=== PATIENT | male | born 1965 | race Two or more races ===

== ENCOUNTER → 2021-04-16 | Outpatient (CLI) | payer BC ==
[~2021-04-16] MED LIST: IOHEXOL 350 MG/ML 100ML IJ ONE
[2021-04-16 11:50] VITALS: BP 127/90
== END | disposition home or self-care (01) ==
LOC: Rad HDHVI 11:35 → EDSEX 11:35
PROVIDERS: ATTEND Internal Medicine Cardiovascular Disease
DX: I25.10 Atherosclerotic heart disease of native coronary artery without angina pectoris (principal); R06.02 Shortness of breath; R07.9 Chest pain, unspecified; K76.0 Fatty (change of) liver, not elsewhere classified; M47.814 Spondylosis without myelopathy or radiculopathy, thoracic region
CPT/HCPCS: 71275; G0463; Q9967

== ENCOUNTER 2023-11-09 08:10 | Emergency (ER) | payer BC ==
[~2023-11-09] VITALS: Ht 182.9 cm; Wt 88.6 kg
[2023-11-09 09:02] VITALS: BP 135/92; PULSE 102; RESP 18; TEMP 97.7; O2SAT 99
== END 2023-11-09 09:21 | disposition home or self-care (01) ==
LOC: ER 08:10
DX: R51.9 Headache, unspecified (principal); W18.39XA Other fall on same level, initial encounter; Y93.89 Activity, other specified; Y92.89 Other specified places as the place of occurrence of the external cause; Y99.8 Other external cause status
CPT/HCPCS: 70450

== ENCOUNTER → 2024-08-01 | Outpatient (CLI) | payer BC | END | disposition home or self-care (01) | LOC: Rad HDHVI 12:55 | PROVIDERS: ATTEND Internal Medicine Cardiovascular Disease | DX: I35.8 Other nonrheumatic aortic valve disorders (principal); I10 Essential (primary) hypertension | CPT/HCPCS: 93306 ==

== ENCOUNTER → 2024-08-02 | Outpatient (CLI) | payer BC ==
[~2024-08-02] MED LIST changes: +SODIUM CHLORIDE 0.9% 250 ML IV ONE
[2024-08-02 08:48] VITALS: BP 140/95; PULSE 74; RESP 16; O2SAT 98
[2024-08-02] MEDS: diphenhdrAMINE HCL 50 MG/1 ML VL IV ONE (09:15)
[2024-08-02] MEDS: methylPREDNISolone SOD SUCC 125 MG/2 ML VL IV ONE (09:17)
[2024-08-02] MEDS: diphenhdrAMINE HCL 50 MG/1 ML VL ONE (09:17)
[2024-08-02] MEDS: methylPREDNISolone SOD SUCC 125 MG/2 ML VL ONE (09:19)
[2024-08-02] MEDS: SODIUM CHLORIDE 0.9% 250 ML IV ONE (09:19)
[2024-08-02 10:20] VITALS: BP 130/89; PULSE 77; RESP 16; O2SAT 98
== END | disposition home or self-care (01) ==
LOC: Rad HDHVI 08:31
PROVIDERS: ATTEND Internal Medicine Cardiovascular Disease
DX: R22.2 Localized swelling, mass and lump, trunk (principal); I10 Essential (primary) hypertension; Z91.041 Radiographic dye allergy status
CPT/HCPCS: 72129; 96374; 96375; G0463; J1200; J2919; J7050; Q9967; 96360

== ENCOUNTER → 2024-09-25 | Outpatient (CLI) | payer BC ==
[~2024-09-25] VITALS: Ht 182.9 cm; Wt 88.5 kg
== END | disposition home or self-care (01) ==
LOC: Rad HDHVI 14:06
PROVIDERS: ATTEND Internal Medicine Cardiovascular Disease
DX: Z13.6 Encounter for screening for cardiovascular disorders (principal); I49.3 Ventricular premature depolarization; I49.1 Atrial premature depolarization; I10 Essential (primary) hypertension; I25.10 Atherosclerotic heart disease of native coronary artery without angina pectoris; R73.03 Prediabetes; R06.02 Shortness of breath; J44.9 Chronic obstructive pulmonary disease, unspecified; E78.00 Pure hypercholesterolemia, unspecified; F17.200 Nicotine dependence, unspecified, uncomplicated
CPT/HCPCS: 78452; 93017; 96374; A9500

== ENCOUNTER → 2024-10-14 | Outpatient (CLI) | payer BC ==
[~2024-10-14] MED LIST changes: +AMLO1TAB22 PO; +ATOR20TA50 PO; +CLOP75TA28 PO; -IOHEXOL 350 MG/ML 100ML IJ ONE; +LISI10TA34 PO; +PANT40T PO; -SODIUM CHLORIDE 0.9% 250 ML IV ONE; +TAMS-35 PO
[2024-10-14 12:03] VITALS: BP 117/80; PULSE 70; RESP 17; O2SAT 98
[2024-10-14 12:13] VITALS: BP 112/80; PULSE 77; RESP 18; O2SAT 98
--- NOTE | 2024-10-14 13:06 | DVH ---
CHEST RADIOGRAPH Indication: PRE OP Technique: Frontal and lateral view of the chest was obtained Comparison: None FINDINGS: Lines and Tubes: None Lungs: Clear Pleura: No effusion. No pneumothorax. Cardiomediastinal contours: Unremarkable Bones: Unremarkable IMPRESSION: 1. No evidence of acute disease.
== END | disposition home or self-care (01) ==
LOC: Rad HDHVI 11:55
PROVIDERS: ATTEND Internal Medicine Cardiovascular Disease
DX: Z01.818 Encounter for other preprocedural examination (principal); R00.1 Bradycardia, unspecified; I95.9 Hypotension, unspecified
CPT/HCPCS: 71046; 93005; G0463

== ENCOUNTER 2024-10-17 07:16 | Day surgery (SDC) | payer BC ==
[2024-10-14 14:01] LABS: Basophils # (auto) 0 10 ^3/uL (0-0.2); Basophils % (auto) 0.7 % (0.0-2.0); Eosinophils # (auto) 0.2 10 ^3/uL (0-0.8); Eosinophils % (auto) 2.9 % (0.0-7.0); Hematocrit 48.4 % (41.0-53.0); Hemoglobin 16.4 g/dL (13.5-17.5); Lymphocytes # (auto) 2.3 10 ^3/uL (0.4-5.4); Lymphocytes % (auto) 39.2 % (10.0-50.0); Mean Corpuscular Hemoglobin 30.3 pg (28.0-32.0); Mean Corpuscular Hgb Conc. 33.9 g/dL (32.0-36.0); Mean Corpuscular Volume 89.5 fL (80.0-100.0); Monocytes # (auto) 0.6 10 ^3/uL (0-1.3); Monocytes % (auto) 9.9 % (0.0-12.0); Neutrophils # (auto) 2.8 10 ^3/uL (1.6-8.6); Neutrophils % (auto) 47.3 % (37.0-80.0); Platelet Count (auto) 374 10^3/uL (140-450); Red Cell Distribution Width 13.1 % (11.8-14.3); White Blood Cell 5.8 10^3/uL (4.4-10.8)
[2024-10-14 14:21] LABS: INR 1.02 (0.9-1.15); Partial Thromboplastin Time 26.1 SEC (24.5-34.5); Prothrombin Time 10.8 sec (9.3-11.8)
[2024-10-14 14:39] LABS: Chloride 106 mmol/L (98-107); Potassium 4.1 mmol/L (3.5-5.1); Sodium 140 mmol/L (136-145)
[2024-10-14 14:40] LABS: Anion Gap 6 (5-15); Calcium 9.9 mg/dL (8.7-10.4); Carbon Dioxide 28 mmol/L (20-31)
[2024-10-14 14:45] LABS: Blood Urea Nitrogen 12 mg/dL (9-23)
[2024-10-14 14:49] LABS: Glucose 108 mg/dL (74-106)
[~2024-10-17] VITALS: Ht 182.9 cm; Wt 91.2 kg
[2024-10-17] VITALS (10 sets, daily range): BP systolic 99–127; BP diastolic 67–81; PULSE 64–79; RESP 13–23; TEMP 97.3; O2SAT 91–99
[2024-10-17] MEDS ORDERED: methylPREDNISolone SOD SUCC 125 MG/2 ML VL ONE (09:48)
[2024-10-17] MEDS ORDERED: diphenhdrAMINE HCL 50 MG/1 ML VL ONE (09:48)
[2024-10-17] MEDS ORDERED: VERAPAMIL 2.5MG/ML INJ 2ML VIAL IV ONE (09:49)
[2024-10-17] MEDS ORDERED: HEPARIN SODIUM (PORCINE) 5000 UNITS/ML 1ML VIAL ONE (09:50)
[2024-10-17] MEDS ORDERED: LIDOCAINE 2%HCL (LOCAL ANESTH.) INJ 10ml MDV ONE (09:51)
[2024-10-17] MEDS ORDERED: MIDAZOLAM HCL 2MG/2ML 2ml VIAL (1mg/ml) ONE (09:51)
[2024-10-17] MEDS ORDERED: fentaNYL CITRATE 100 MCG/2 ML VL ONE (09:51)
[2024-10-17] MEDS ORDERED: FAMOTIDINE (10MG/ML) 2ML VL IV ONE (09:52)
[2024-10-17] MEDS ORDERED: LIDOCAINE 2%HCL (LOCAL ANESTH.) INJ 20ML MDV ONE (09:58)
[2024-10-17] MEDS ORDERED: NITROGLYCERIN 50MG/250ML 250 ML IV ONE (09:58)
[2024-10-17] MEDS ORDERED: IOHEXOL 350 MG/ML 100ML IJ ONE (09:59)
[2024-10-17] MEDS ORDERED: SODIUM CHL 0.9% 0 ML ONE (10:23)
[2024-10-17] MEDS ORDERED: ANGIOMAX 250 MG VIAL IV ONE (10:23)
--- NOTE | 2024-10-17 11:09 | DVHDS ---
DATE OF DISCHARGE: 10/17/2024 DISCHARGE DIAGNOSES: Normal coronary anatomy. The patient with hypotension during exercise, but currently the patient is doing well. No congenital abnormality. No any evidence for coronary artery disease. The patient is clinically stable, may be discharged home. Follow up with me in 1 week. Stable at the time of discharge. ACTIVITY: As instructed. DIET: Will be 2 gram sodium diet. Jorgito Gay MD SA/SHERON TID: [id number] RECEIPT: [id number]
--- NOTE | 2024-10-17 11:16 | DVHOP ---
DATE OF SURGERY: 10/17/2024 INDICATIONS: The patient is 59-year-old with a history of hypertension, hyperlipidemia, history of hypotension during exercise. The patient is now to undergo coronary angiography to define coronary anatomy. DESCRIPTION OF PROCEDURE: Right radial artery was anesthetized using a micropuncture needle, right radial artery was cannulated. A 6-Bulgarian sheath into the right radial artery. Using a 6-[place]ian [place], then a JR4, multiple other catheters were tested including JL3.5, but none of them could fit the left main adequately, but we were able to get a nonselective injection of the left main, left anterior descending artery and the circumflex. That showed that the patient did not have any significant flow restrictive lesion. Furthermore, right coronary artery with a JR4 showed no evidence for any stenosis. EF was normal as well. FINDINGS: Thus, the patient with normal coronary anatomy. Left main without any flow restrictive lesion. Proximal segment of the left anterior descending artery without any flow restrictive lesion. Distal LAD was not adequately visualized. Circumflex artery nondominant vessel without any flow restrictive lesion and the patient's right coronary artery, large, dominant vessel without any flow restrictive lesion. EF is around 60% with LVEDP of 15 mmHg, with no gradient across the aortic valve. The patient with very short neck, and therefore, we had a difficult time cannulating his left main, but nonselective injection was obtained and clearly demonstrated the patient did not have any atheromatous plaquing, nor any congenital abnormality. Jorgito Gay MD SA/ALAINA TID: [id number] RECEIPT: [id number]
[2024-10-17] MEDS: HYDROmorphone HCL 2 MG/ML VL/or syr IV ONE (11:26)
--- NOTE | 2024-10-17 11:42 | DVHHP ---
ADMIT DATE: 10/17/2024 HISTORY OF PRESENT ILLNESS: The patient is 59 with history of near syncope with hypotension during exercise. Because of above presentation, it is felt that the patient should undergo coronary angiography. Stress test was negative and the patient's echocardiogram also shows no segmental wall motion abnormality. The patient has no distal arrhythmia as well and therefore at this time just to define the patient's coronary anatomy for his hypotensive episode during his stress test. Risks and benefits were explained to the patient, however, has ALLERGY TO CONTRAST. REVIEW OF SYSTEMS: He denies any syncopal episode. No melena, hematochezia, no hematemesis, hemoptysis. No history of diabetes. No history of CVA. No history of melena or hematochezia. No history of dysuria, polyuria, polydipsia. No history of hematuria. FAMILY HISTORY: Negative. SOCIAL HISTORY: Negative. PHYSICAL EXAMINATION: VITAL SIGNS: Blood pressure is 109/79, pulse of 64, O2 saturation 98% on room air. HEENT: Pupils are reactive. Fundoscopic exam is benign. Sclerae anicteric. No exudates noted. Tympanic membranes are negative. Oral mucosa moist. Posterior pharynx without any exudates. NECK: Supple. No nuchal rigidity appreciated. No cervical adenopathy. No supraclavicular adenopathy. He does not have any axillary adenopathy as well. Carotid pulses are 2+ symmetrical. Normal upstroke and contour. No JVD appreciated. Thyroid is within normal limits. PULMONARY: Clear to auscultation. Tympanic to percussion. No rhonchi, no wheezes. No egophony. CARDIOVASCULAR: Regular rate without S3, without S4. PMI is not displaced. ABDOMEN: Soft. Nontender. Normal bowel sound. Liver approximately 5 cm by percussion. No epigastric tenderness. No suprapubic tenderness. No CVA tenderness. NEUROLOGIC: The patient is intact. DTRs are 2+ symmetrical. Cranial nerves 2 through 12 within normal limits. Sensory and motor modalities are intact. Negative for ataxia. Negative for Babinski. Negative for pronator drift. EXTREMITIES: 1+ edema and 1+ pulses bilaterally. ASSESSMENT AND PLAN: Thus, the patient with hypotension during exercise, now to undergo coronary angiography to define coronary anatomy. Further recommendations after the angiogram. Jorgito Gay MD SA/GABRIELA/CECIL TID: [id number] RECEIPT: [id number]
== END 2024-10-17 13:17 | disposition home or self-care (01) ==
LOC: CATH 07:16
PROVIDERS: ATTEND Internal Medicine Cardiovascular Disease
DX: R07.89 Other chest pain (principal); I10 Essential (primary) hypertension; E78.5 Hyperlipidemia, unspecified; I25.10 Atherosclerotic heart disease of native coronary artery without angina pectoris; R06.02 Shortness of breath; Z91.041 Radiographic dye allergy status; R06.09 Other forms of dyspnea
CPT/HCPCS: 36415; 80048; 85025; 85610; 85730; 93458; J1171; J1200; J1644; J2250; J2919; J3010; J7040; Q9967; 99152; 99153; J2003; J3490